=== PATIENT | male | born 1995 | race Caucasian/White ===

== ENCOUNTER 2016-09-23 20:39 | Emergency (ER) | payer SELFPAY ==
[~2016-09-23] VITALS: Ht 188 cm; Wt 119.0 kg
--- OUTSIDE RECORDS SUMMARY | 2016-09-23 20:44 | XMS REPORT | Continuity of Care Document ---
Author Author Jaime WEISS, [facility] Address [address] [place] [address] Phone Care Team Providers Care Pre Parole Counseling Aide Name Role Phone Viviana Peng CATHRYN Unavailable Payers Payer name Insurance type Covered green party ID Authorization(s) Unknown Problems Condition Effective Dates (start - stop) Clinical Status Other specified disorders of skin - Improved Patellar instability - *Chronic Other and unspecified injury to finger - *Acute Influenza Vaccine - Routine infant or child health check - Routine Pilonidal disease - *Acute Family History Family Member Diagnosis Age At Onset Status Unknown Social History Social History Element Description Quantity Unknown Allergies, Adverse Reactions, Alerts Substance Reaction Severity Status Unknown Medications Medication Instructions Dosage Effective Dates (start - stop) Status Unknown Immunizations Vaccine Date Status Comments MMR completed - Completed reason: previously given MMR completed - Completed reason: previously given varicella completed - Completed reason: previously given hep B (ped/adol, 3 dose) completed - Completed reason: previously given hep B (ped/adol, 3 dose) completed - Completed reason: previously given hep B (ped/adol, 3 dose) completed - Completed reason: previously given Pentacel (DTap/IPV/Hib) completed - Completed reason: previously given Pentacel (DTap/IPV/Hib) completed - Completed reason: previously given Pentacel (DTap/IPV/Hib) completed - Completed reason: previously given Kinrix (DTap/IPV) completed - Completed reason: previously given DTaP completed - Completed reason: previously given Hib (HbOC) completed - Completed reason: previously given MCV4 completed - Completed reason: previously given hep B (ped/adol, 3 dose) completed - Completed reason: previously given hep A (ped/adol, 2 dose) completed - Completed reason: previously given Influenza virus vaccine, intranasal completed - Completed reason : previously given Influenza virus vaccine, intranasal completed - Completed reason : previously given Influenza virus vaccine, intranasal completed - Completed reason : previously given flu (split) (3 yrs or older) completed - Completed reason: previously given Flu (split) (3 yrs or older) completed Tdap (Adacel ) completed - Completed reason: previously given Tdap (Adacel ) completed - Completed reason: previously given varicella completed - Completed reason: previously given Results Test Name Date and Time Measure Units Reference Range Abnormal Flag Comments Unknown Vital Signs Date / Time: Height Weight Pulse Rate Blood Pressure Temperature /09:23:00 72.00 in 283.00 lbs Procedures Procedure Date Unknown Encounters Encounter Location Date Patient Visit [facility] Surg Patient Visit [facility] Peds Patient Visit [facility] Care Patient Visit [facility] Peds Patient Visit [facility] Surg Advance Directives Directive Effective Date Unknown
--- OUTSIDE RECORDS SUMMARY | 2016-09-23 20:44 | XMS REPORT | Continuity of Care Document ---
Author Author Viviana Ziegler RN [facility] Ambulatory Address [address] [place] [address] Phone Unavailable Care Team Providers Care Flap Maker Name Role Phone Viviana Peng PP Unavailable Payers Payer name Insurance type Covered democrat ID Authorization(s) Unknown Problems Condition Effective Dates (start - stop) Clinical Status Patellar instability - *Chronic Influenza Vaccine - Routine or child health check - Routine Other specified disorders of skin - Improved Pilonidal disease - *Acute Family History Family [...] Height Weight Pulse Rate Blood Pressure Temperature /13:39:00 72.00 in 283.00 lbs 69 /min 128/60 mm[Hg] Procedures Procedure Date Unknown Encounters Encounter Location Date Patient Visit [facility] Peds Patient Visit [facility] Peds Patient Visit [facility] Surg Patient Visit [facility] Surg Advance Directives Directive Effective Date Unknown
--- OUTSIDE RECORDS SUMMARY | 2016-09-23 20:44 | XMS REPORT | Continuity of Care Document ---
Author Author [facility] Organization [facility] Address Unknown Phone Unavailable Allergies Medications Problems Procedures Results Encounters ACCT No. Visit Date/Time Discharge Status Pt. Type Provider Facility Loc./Unit Complaint [id number] 05/20/2013 19:40:00 05/20/2013 23 :59:59 CLS Outpatient [id number] 04/22/2013 09:22:00 04/22/2013 23 :59:59 CLS Outpatient [id number] 04/11/2013 13:35:00 04/11/2013 23 :59:59 CLS Outpatient
--- OUTSIDE RECORDS SUMMARY | 2016-09-23 20:44 | XMS REPORT | Continuity of Care Document ---
Author Author Wilile Owens DO [facility] Ambulatory Address [address] [place] [address] Phone Care Team Providers Care Finance Intern Name Role Phone Viviana Peng PP Unavailable Payers Payer name Insurance type Covered green party ID Authorization(s) Unknown Problems Condition Effective Dates (start - stop) Clinical Status Other and unspecified injury to finger - *Acute Patellar instability - *Chronic Influenza Vaccine - Routine infant or child health check - Routine Other specified disorders of skin - Improved Pilonidal disease - *Acute Family History Family Member Diagnosis Age At Onset Status Unknown Social History Social History Element Description Quantity Unknown Allergies, Adverse Reactions, Alerts Substance Reaction Severity Status Unknown Medications Medication Instructions Dosage Effective Dates (start - stop) Status Unknown Immunizations Vaccine Date Status Comments hep A (ped/adol, 2 dose) completed - Completed reason: previously given Hib (HbOC) completed - Completed reason: previously given Flu (split) (3 yrs or older) completed flu (split) (3 yrs or older) completed - Completed reason: previously given Influenza virus vaccine, intranasal completed - Completed reason : previously given Influenza virus vaccine, intranasal completed - Completed reason : previously given Influenza virus vaccine, intranasal completed - Completed reason : previously given Kinrix (DTap/IPV) completed - Completed reason: previously given Pentacel (DTap/IPV/Hib) completed - Completed reason: previously given Pentacel (DTap/IPV/Hib) completed - Completed reason: previously given Pentacel (DTap/IPV/Hib) completed - Completed reason: previously given DTaP completed - Completed reason: previously given MMR completed - Completed reason: previously given MMR completed - Completed reason: previously given Tdap (Adacel ) completed - Completed reason: previously given Tdap (Adacel ) completed - Completed reason: previously given varicella completed - Completed reason: previously given varicella completed - Completed reason: previously given MCV4 completed - Completed reason: previously given hep B (ped/adol, 3 dose) completed - Completed reason: previously given hep B (ped/adol, 3 dose) completed - Completed reason: previously given hep B (ped/adol, 3 dose) completed - Completed reason: previously given hep B (ped/adol, 3 dose) completed - Completed reason: previously given Results Test Name Date and Time Measure Units Reference Range Abnormal Flag Comments Unknown Vital Signs Date / Time: Height Weight Pulse Rate Blood Pressure Temperature /19:40:00 294.00 lbs 79 /min 144/67 mm[Hg] 98.6 F Procedures Procedure Date Unknown Encounters Encounter Location Date Patient Visit [facility] Imm Care Patient Visit [place] [address] Peds Patient Visit [place] [address] Peds Patient Visit [facility] Surg Patient Visit [facility] Surg Advance Directives Directive Effective Date Unknown
[2016-09-23 21:00] VITALS: Ht 188 cm; Wt 119.0 kg
--- OUTSIDE RECORDS SUMMARY | 2016-09-23 21:59 | XMS REPORT | Continuity of Care Document ---
Author Author [facility] Organization [facility] Address Unknown Phone Unavailable Allergies Medications Problems Procedures Results Encounters ACCT No. Visit Date/Time Discharge Status Pt. Type Provider Facility Loc./Unit Complaint [id number] 05/20/2013 19:40:00 05/20/2013 23 :59:59 CLS Outpatient [id number] 04/22/2013 09:22:00 04/22/2013 23 :59:59 CLS Outpatient [id number] 04/11/2013 13:35:00 04/11/2013 23 :59:59 CLS Outpatient
--- NOTE | 2016-09-23 22:03 | NUR ---
PROVIDER DR NEWTON IN TO SEE PATIENT.
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
[2016-09-23 23:15] VITALS: BP 126/60; PULSE 71; RESP 20; TEMP 98.2; O2SAT 99
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
== END 2016-09-23 23:16 | disposition home or self-care (01) ==
LOC: ED 20:39
DX: S90.112A Contusion of left great toe without damage to nail, initial encounter (principal); W22.8XXA Striking against or struck by other objects, initial encounter; Y93.55 Activity, bike riding; Y92.9 Unspecified place or not applicable; Y99.0 Civilian activity done for income or pay